=== PATIENT | male | born 1960 | race Caucasian/White ===

== ENCOUNTER → 2019-09-10 | Day surgery (SDC) | payer BC ==
[~2019-09-10] MED LIST: ALLOPURINOL 10100 M3 PO; FLOMAX0.4 MG PO
--- NOTE | ~2019-09-10 | EKG ---
[place] [address] ELECTROCARDIOGRAM REPORT Name: BENJAMÍN SHER Room: [facility]#: [id number] Admission: 09/10/19 Attend Phys: Altagracia Zavala MD Discharge: Date of : 56 Date of Service: 09/10/19 1003 Report #: [id number] THIS REPORT FOR: cc: Marques Coronado MD, Erick J. 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
--- NOTE | ~2019-09-10 | PROC ---
[facility] [address] [place] [address] PROCEDURE REPORT Name: BENJAMÍN SHER Room: [facility].#: [id number] Admission: 09/10/19 Attend Phys: Altagracia Zavala MD Discharge: Date of : 56 Report #: [id number] THIS REPORT FOR: //name// cc: Marques Coronado MD, Erick J. MD ~ THIS REPORT FOR: //name// For GI report, please see the Provation report in Perceptive 7 content. By: [facility]3Medical Records Staff KRIS /SHAQ
[2019-09-10 10:05] LABS: HEMATOCRIT 42.6 % (42.0-52.0); HEMOGLOBIN 14.8 gm/dL (14.0-18.0); MCH 32.5 pg (26.0-34.0); MCHC 34.7 g/dL (28.0-37.0); MCV 93.6 fL (80.0-100.0); MPV 8.1 fl. (7.2-11.1); RBC 4.55 mil/uL (4.50-6.00); RDW-CV 13.9 % (10.5-14.5); WBC 7.3 thou/uL (4.0-11.0)
[2019-09-10 10:17] LABS: CALCIUM 9.2 mg/dL (8.5-10.1); CREATININE 1.1 mg/dL (0.6-1.3); POTASSIUM 4.1 mmol/L (3.5-5.1)
[2019-09-10 10:21] LABS: ALBUMIN 3.8 g/dL (3.4-5.0); TOTAL BILIRUBIN 0.8 mg/dL (<0.1-1.0); TOTAL PROTEIN 7.5 g/dL (6.4-8.2)
--- NOTE | 2019-09-14 09:07 | PATH ---
[facility] [address] [place] [address] PATHOLOGY RPT PROCEDURE Name: BENJAMÍN SHER Room: [facility].#: [id number] Admission: 09/10/19 Date of : 56 Discharge: Report #: [id number] Path Case #: [id number] [facility] Accession Number: [id number] . 01 Material submitted: . colon - DESCENDING COLON POLYP. Modifiers: descending . 01 Clinical history: . Personal history of colon polyps. . 02 Diagnosis: Descending colon polyp: - Tubular adenoma, negative for high-grade dysplasia. (CANDIE:pit 09/13/2019) QTP 09/13/2019 1313 Local . 02 Electronically signed: . Alex Carreon MD, Pathologist NPI- [id number] . 01 Gross description: . Received in formalin labeled "Stacey, Lorgio, descending colon polyp" is a 0.5 x 0.3 x 0.1 cm fragment of metz-brown soft tissue. The specimen is submitted entirely in A1. ([facility] [place]; 09/11/2019) [facility] 09/11/2019 0947 Local . 02 Pathologist provided ICD-10: D12.4 . 02 CPT . 546792 Specimen Comment: A courtesy copy of this report has been sent to [phone], [phone] Specimen Comment: [id number] Specimen Comment: Report sent to and Specimen Comment: A duplicate report has been generated due to demographic updates. Performed at: 01 [facility] [id number] [facility] [address], [place], [place] [id number] MD Vladimir Meza MD Phone: [phone] Performed at: 02 [facility] [address], [place], [place] [id number] MD Alex Carreon MD Phone: [phone]
== END | disposition home or self-care (01) ==
LOC: M.SUR 08:46
PROVIDERS: Internal Medicine Gastroenterology
DX: Z12.11 Encounter for screening for malignant neoplasm of colon (principal); Z86.010 Personal history of colon polyps; D12.4 Benign neoplasm of descending colon; K64.8 Other hemorrhoids; K57.30 Diverticulosis of large intestine without perforation or abscess without bleeding; I10 Essential (primary) hypertension; Z98.890 Other specified postprocedural states; Z79.899 Other long term (current) drug therapy; Z88.8 Allergy status to other drugs, medicaments and biological substances; Z87.891 Personal history of nicotine dependence; Z98.84 Bariatric surgery status; Z90.49 Acquired absence of other specified parts of digestive tract

== ENCOUNTER 2019-12-28 18:03 | Emergency (ER) | payer BC ==
[~2019-12-28] VITALS: Ht 175.3 cm; Wt 149.7 kg
[2019-12-28 18:42] LABS: URINE BILIRUBIN NEGATIVE (Negative); URINE BLOOD NEGATIVE (Negative); URINE CLARITY CLEAR; URINE COLOR YELLOW; URINE GLUCOSE-RANDOM NEGATIVE (Negative); URINE KETONES NEGATIVE (Negative); URINE LEUKOCYTES-REFLEX NEGATIVE (Negative); URINE NITRITE-REFLEX NEGATIVE (Negative); URINE PROTEIN NEGATIVE (Negative); URINE UROBILINOGEN 0.2 E.U./dl (0.2-1.0)
[2019-12-28 18:51] LABS: ABSOLUTE BASOPHILS 0.1 thou/uL (0.0-0.2); ABSOLUTE EOSINOPHILS 0.3 thou/uL (0.0-0.7); ABSOLUTE MONOCYTES 0.8 thou/uL (0.0-1.2); ABSOLUTE NEUTROPHILS 6.1 thou/uL (1.6-8.1); EOSINOPHILS 3.1 %; HEMATOCRIT 42.3 % (42.0-52.0); HEMOGLOBIN 14.6 gm/dL (14.0-18.0); LYMPHOCYTES 21.7 %; MCH 32.8 pg (26.0-34.0); MCHC 34.5 g/dL (28.0-37.0); MCV 94.9 fL (80.0-100.0); MONOCYTES 8.7 %; MPV 8.4 fl. (7.2-11.1); NUCLEATED RBCS 0 /100WBC; PLATELET COUNT* 266 thou/uL (150-400); POLYS 65.5 %; RBC 4.46 mil/uL (4.50-6.00); RDW-CV 13.6 % (10.5-14.5); WBC 9.3 thou/uL (4.0-11.0)
[2019-12-28 19:01] LABS: CREATININE 1.3 mg/dL (0.6-1.3); POTASSIUM 4.1 mmol/L (3.5-5.1)
[2019-12-28 19:05] LABS: TOTAL BILIRUBIN 0.6 mg/dL (<0.1-1.0); TOTAL PROTEIN 7.7 g/dL (6.4-8.2)
[2019-12-28] MEDS ORDERED: ALLOPURINOL 10100 M3 PO ×2 (19:49→19:52)
[2019-12-28] MEDS ORDERED: BACLOFEN 10MG T10 MG PO ×2 (19:50→19:51)
[2019-12-28] MEDS ORDERED: MOBIC7.5 MG PO ×3 (19:50→19:51)
[2019-12-28 20:05] VITALS: BP 132/70
== END 2019-12-28 20:06 | disposition home or self-care (01) ==
LOC: M.ERS 18:03
PROVIDERS: Personal Emergency Response Attendant
DX: M47.897 Other spondylosis, lumbosacral region (principal); M54.5 Low back pain; M10.9 Gout, unspecified; I10 Essential (primary) hypertension; M19.90 Unspecified osteoarthritis, unspecified site; E78.5 Hyperlipidemia, unspecified; Z88.6 Allergy status to analgesic agent; Z88.5 Allergy status to narcotic agent

== ENCOUNTER 2020-04-29 10:21 | Emergency (ER) | payer BC ==
[~2020-04-29] VITALS: Ht 175.3 cm; Wt 149.7 kg
[~2020-04-29 10:21] MED LIST changes: +BACLOFEN 10MG T10 MG PO; +MOBIC7.5 MG PO
[2020-04-29] MEDS ORDERED: ACYCLOVIR 800800 MG PO (10:37)
[2020-04-29] MEDS ORDERED: PREDNISONE 10 M10 M1 PO (10:37)
[2020-04-29] MEDS ORDERED: ATORVASTATIN CA10 MG PO (10:43)
[2020-04-29] MEDS ORDERED: ASA81BEC PO (10:43)
[2020-04-29 11:02] LABS: ABSOLUTE EOSINOPHILS 0.2 thou/uL (0.0-0.7); ABSOLUTE LYMPHOCYTES 1.3 thou/uL (0.8-5.3); ABSOLUTE MONOCYTES 0.5 thou/uL (0.0-1.2); ABSOLUTE NEUTROPHILS 4.5 thou/uL (1.6-8.1); BASOPHILS 0.6 %; EOSINOPHILS 3.4 %; HEMATOCRIT 41.4 % (42.0-52.0); HEMOGLOBIN 14.2 gm/dL (14.0-18.0); MCH 32.3 pg (26.0-34.0); MCHC 34.3 g/dL (28.0-37.0); MCV 94.1 fL (80.0-100.0); MPV 7.8 fl. (7.2-11.1); NUCLEATED RBCS 0 /100WBC; PLATELET COUNT* 224 thou/uL (150-400); RDW-CV 13.7 % (10.5-14.5); WBC 6.5 thou/uL (4.0-11.0)
[2020-04-29 11:10] LABS: CREATININE 1.2 mg/dL (0.6-1.3); POTASSIUM 3.5 mmol/L (3.5-5.1)
[2020-04-29 11:15] LABS: ALBUMIN 3.7 g/dL (3.4-5.0); TOTAL BILIRUBIN 0.9 mg/dL (<0.1-1.0); TOTAL PROTEIN 7.4 g/dL (6.4-8.2)
[2020-04-29 11:35] VITALS: BP 140/75
--- NOTE | 2020-05-01 14:52 | EKG ---
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[facility] 1960 Requested By: Jos Maldonado Order Number: [id number] MD: Gil Styles Measurements Intervals [place] Rate: 99 P: 57 FL: 186 QRS: -29 QRSD: 90 T: 37 QT: 352 QTc: 452 Interpretive Statements Sinus rhythm Rare PVCs Inferior infarct, old Compared to ECG 09/10/2019 10:03:55 Rare PVC is noted Myocardial infarct finding now present Electronically Signed On 05-01-2020 14:51:57 CDT by Gil Styles [email or web address] <ELECTRONICALLY SIGNED> By: Gil Styles MD, [facility] 05/01/20 1451 1032 1032 Gil Styles MD, [facility] /EPI
== END 2020-04-29 11:35 | disposition home or self-care (01) ==
LOC: M.ERS 10:21
PROVIDERS: Emergency Medicine Emergency Medical Services
DX: G51.0 Bell's palsy (principal); I10 Essential (primary) hypertension; M19.90 Unspecified osteoarthritis, unspecified site; E78.5 Hyperlipidemia, unspecified; N40.0 Benign prostatic hyperplasia without lower urinary tract symptoms; Z88.6 Allergy status to analgesic agent; Z88.5 Allergy status to narcotic agent